=== PATIENT | female | born 1930 | race Asian ===

== ENCOUNTER 2016-08-09 09:05 | Outpatient (CLI) | payer MEDICARE, OTHER | END 2016-08-09 09:06 | disposition home or self-care (01) | DX: E78.5 Hyperlipidemia, unspecified (principal); I10 Essential (primary) hypertension ==

== ENCOUNTER 2016-11-11 18:54 | Emergency (ER) | payer MEDICARE, OTHER ==
--- NOTE | 2016-11-11 20:23 | XRAY Preliminary Report ---
Exam: XR Chest 2 View PA/LAT IMPRESSION: 1. Lungs are well expanded. Heart size within normal limits. 2. There is thoracic aortic tortuosity and calcification. 3. There are scattered nodular opacities within the right upper chest. This is nonspecific but could represent atypical infection. 4. No evidence of pleural effusion. 5. No pneumothorax. [facility] SITE ID: [id number]
--- NOTE | 2016-11-11 20:26 | XRAY Report ---
EXAM: CHEST RADIOGRAPHY EXAM DATE: 11/11/2016 07:48 PM. CLINICAL HISTORY: Cough. COMPARISON: None. TECHNIQUE: 2 views. FINDINGS: Lungs/Pleura: Lungs well-expanded. There is nodular opacities projecting over the right upper chest. No evidence of pleural effusion. No pneumothorax. Mediastinum: Heart size is within normal limits. There is thoracic aortic tortuosity and calcificatio n. Other: There is cholelithiasis. Visualized bowel gas pattern is unremarkable. IMPRESSION: 1. Lungs are well expanded. Heart size within normal limits. 2. There is thoracic aortic tortuosity and calcification. 3. There are scattered nodular opacities within the right upper chest. This is nonspecific but could represent atypical infection. 4. No evidence of pleural effusion. 5. No pneumothorax. [facility] Referring Provider Line: [phone] SITE ID: [id number]
[2016-11-11 20:54] LABS: BASOPHILS # (AUTO) 0.1 10^3/uL (0.0-0.1); BASOPHILS % (AUTO) 0.8 %; EOSINOPHILS # (AUTO) 0.4 10^3/uL (0.0-0.7); EOSINOPHILS % (AUTO) 3.8 %; HCT - HEMATOCRIT 37.4 % (37.0-47.0); HGB - HEMOGLOBIN 12.5 g/dL (12.0-16.0); LYMPHOCYTES % (AUTO) 9.9 %; MEAN CORPUSCULAR HEMOGLOBIN 30.4 pg (27.0-31.0); MEAN CORPUSCULAR HGB CONC 33.5 g/dL (32.0-36.0); MEAN CORPUSCULAR VOLUME 90.9 fL (81.0-99.0); MEAN PLATELET VOLUME 8.2 fL (7.9-10.8); MONOCYTES # (AUTO) 0.6 10^3/uL (0.0-1.0); MONOCYTES % (AUTO) 6.2 %; NEUTROPHILS # (AUTO) 7.9 10^3/uL (1.5-6.6); NEUTROPHILS % (AUTO) 79.3 %; RED BLOOD COUNT 4.11 10^6/uL (4.20-5.40); RED CELL DISTRIBUTION WIDTH 12.9 % (12.0-15.0); UNCORRECTED WHITE BLOOD COUNT 9.9 x10^3/uL; WHITE BLOOD COUNT 9.9 x10^3/uL (4.8-10.8)
[2016-11-11 21:06] LABS: ALBUMIN/GLOBULIN RATIO 1.2 (1.0-2.2); BILIRUBIN,TOTAL 0.5 mg/dL (0.2-1.0); CALCIUM 9.7 mg/dL (8.5-10.3); CREATININE 0.8 mg/dL (0.4-1.0); POTASSIUM 3.7 mmol/L (3.5-5.0); TOTAL PROTEIN 8.2 g/dL (6.7-8.2)
[2016-11-11] MEDS ORDERED: IOPAMIDOL-300 100 ML VIAL IVP ONE (22:01)
--- NOTE | 2016-11-11 22:29 | CT Report ---
EXAM: CT ANGIOGRAM CHEST EXAM DATE: 11/11/2016 10:04 PM. CLINICAL HISTORY: Hemoptysis. COMPARISON: 04/08/2015. TECHNIQUE: Routine helical imaging was performed through the chest in the pulmonary arterial phase. I V Contrast: 80 cc Isovue 300. Reconstructions: Coronal 3-D MIP reconstructions.Sagittal and coronal. In accordance with CT protocol optimization, one or more of the following dose reduction techniques w ere utilized for this exam: automated exposure control, adjustment of mA and/or KV based on patient s ize, or use of iterative reconstructive technique. FINDINGS: Pulmonary Arteries: Diagnostic quality: Adequate through the mid segmental arteries. No evidence for acute or chronic pul monary emboli. Lungs/Pleura: There are scattered nodular opacities within the posterior segment of the right upper l obe. There is mild bibasilar atelectasis. No pleural effusion. No pneumothorax. Mediastinum: Mild aneurysmal dilatation of the ascending thoracic aorta which measures up to 4.0 cm i n diameter. Fluid density focus within the anterior mediastinum may represent a thymic cyst. No solid component is seen. Heart size is within normal limits. No enlarged thoracic lymph nodes. Upper Abdomen: There is cholelithiasis. Fluid density focus measuring 1.9 x 2.5 cm within the pancrea tic body is stable as compared to the previous examination. This could represent a pancreatic cyst or cystic lesion. Other: None. IMPRESSION: 1. No evidence of acute pulmonary embolism to the mid segmental branch level. 2. No evidence of thoracic aortic dissection. There is mild aneurysmal dilatation of the ascending th oracic aorta. 3. Scattered peribronchial nodules within the posterior segment of the right upper lobe. 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 This would be an atypical appearance for canc er or metastasis. 4. Stable fluid density focus within the pancreatic body. 5. There is cholelithiasis. [facility] Referring Provider Line: [phone] SITE ID: [id number]
[2016-11-11] MEDS ORDERED: AZITHROMYCIN 250 MG TABLET PO STA (22:52)
[2016-11-11] MEDS ORDERED: AZITHROMYCIN 250 MG TABLET PO ONE (22:59)
--- NOTE | 2016-11-11 23:27 | ED Physician Documentation ---
PD HPI DYSPNEA - Stated complaint Stated Complaint: COUGHING BLOOD - Chief complaint Chief Complaint: Resp - History obtained from History obtained from: Patient, Family - History of Present Illness Timing - onset: Today Timing - onset during: Rest Timing - details: Gradual onset, Still present Associated symptoms: Hemoptysis. No: Wheezing, Chest pain / discomfort, Diaphoresis, Unilateral edema Similar symptoms before: Has not had sx before Recently seen: Not recently seen - Additional information Additional information: Patient is an 86 year old female with a history of htn who is presenting to the emergency department for hemoptysis. According to patient and family they noticed the symptoms today wit a few episodes. it was about dime size in nature. patient denies chest pain, shortness of breath, fevers or chills. Patient and family travel to [place] every year. Review of Systems Constitutional: denies: Fever, Chills Eyes: denies: Photophobia Ears: denies: Ear pain, Drainage/discharge Nose: denies: Rhinorrhea / runny nose, Congestion Throat: denies: Oral lesions / sores, Sore throat Cardiac: denies: Chest pain / pressure Respiratory: reports: Cough, Hemoptysis. denies: Dyspnea, Wheezing GI: denies: Nausea, Vomiting : denies: Dysuria, Frequency, Hesitancy Skin: denies: Rash, Lesions Musculoskeletal: denies: Neck pain, Back pain, Extremity pain Neurologic: denies: Generalized weakness, Focal weakness Endocrine: denies: Easy bruising / bleeding Immunocompromised: denies: Immunocompromised, Chemotherapy PD PAST MEDICAL HISTORY - Past Medical History Past Medical History: Yes Cardiovascular: Hypertension - Past Surgical History Past Surgical History: No - Present Medications Home Medications: Ambulatory Orders Medication Instructions Recorded Confirmed Alfuzosin HCl [Alfuzosin HCl ER] 10 mg PO DAILY 11/11/16 11/11/16 Chlorthalidone 1 tab PO DAILY 11/11/16 11/11/16 Felodipine [Felodipine ER] 10 mg PO DAILY 11/11/16 11/11/16 Finasteride [Proscar] 1 tab PO DAILY 11/11/16 11/11/16 Gemfibrozil 600 mg PO DAILY 11/11/16 11/11/16 Hydrochlorothiazide 25 mg PO DAILY 11/11/16 11/11/16 Lisinopril 10 mg PO DAILY 11/11/16 11/11/16 Potassium Chloride 20 meq PO BID 11/11/16 11/11/16 amLODIPine [Norvasc] 10 mg PO DAILY 11/11/16 11/11/16 cloNIDine [Catapres] 0.1 mg PO BID 11/11/16 11/11/16 - Allergies Allergies/Adverse Reactions: Allergies Allergy/AdvReac Type Severity Reaction Status Date / Time Penicillins Allergy Unknown Verified 11/11/16 19:20 - Social History Does the pt smoke?: Yes Smoking Status: Former smoker Does the pt drink ETOH?: No Does the pt have substance abuse?: No - Immunizations Immunizations are current?: No Immunizations: TDAP >10years/unknown - POLST Patient has POLST: No PD ED PE NORMAL - Vitals Vital signs reviewed: Yes - General General: Alert and oriented X 3, No acute distress - HEENT HEENT: Atraumatic, PERRL - Neck Neck: Supple, no meningeal sign - Cardiac Cardiac: RRR, No murmur - Respiratory Respiratory: No respiratory distress, Clear bilaterally - Abdomen Abdomen: Soft, Non tender, Non distended - Derm Derm: Normal color, Warm and dry, No rash - Extremities Extremities: No deformity, No tenderness to palpate, No edema - Neuro Neuro: Alert and oriented X 3, bus operator 2-12 intact, No motor deficit, No sensory deficit, Normal speech - Psych Psych: Normal mood, Normal affect Results - Vitals Vitals: Vital Signs - 24 hr 11/11/16 11/11/16 11/11/16 19:18 21:26 23:06 Temperature 36.6 C 36.7 C Heart Rate 110 H 96 80 Respiratory 16 16 15 Rate Blood Pressure 129/71 145/79 H 161/77 H O2 Saturation 94 95 96 11/11/16 23:29 Temperature Heart Rate 92 Respiratory 16 Rate Blood Pressure 151/85 H O2 Saturation 95 Oxygen O2 Source Room air - Labs Labs: Laboratory Tests 11/11/16 11/11/16 20:35 20:35 WBC 9.9 RBC 4.11 L Hgb 12.5 Hct 37.4 MCV 90.9 MCH 30.4 MCHC 33.5 RDW 12.9 Plt Count 363 MPV 8.2 Neut # 7.9 H Lymph # 1.0 L [place] # 0.6 Eos # 0.4 Baso # 0.1 Absolute Nucleated RBC 0.00 Nucleated RBCs 0.0 Sodium 142 Potassium 3.7 Chloride 104 Carbon Dioxide 28 Anion Gap 10.0 BUN 25 H Creatinine 0.8 Estimated GFR (MDRD) 68 L Glucose 199 H Calcium 9.7 Total Bilirubin 0.5 AST 17 ALT 12 Alkaline Phosphatase 75 Total Protein 8.2 Albumin 4.5 Globulin 3.7 Albumin/Globulin Ratio 1.2 Lipase 52 H - Rads (name of study) ct chest Radiology: Final report received (no pe, scattered peribronchial nodules suspicious for mycobacterium), See rad report PD MEDICAL DECISION MAKING - ED course Complexity details: reviewed old records, reviewed results, re-evaluated patient , considered differential, d/w patient, d/w family, d/w production support consultant ED course: Patient was seen and examined at bedside. Chest x-ray had been ordered and showed signs of atypical pneumonia. IV access was gained and labs were drawn. patient's findings were concerning CT PE was ordered. When patient returned the results were reviewed. 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 Infectious ID was consulted at [facility]. Case was discussed Dr. Tomlin. He recommended sputum cultures and to wait to see what the results were before implementing and antibiotic regiment. Discharge plan was explained to the family who understood and agreed. patient required no further work up and was stable for discharge with outpatient follow up. 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 there are many different types so we need to wait on the culture results to see the appropriate treatment. the culture can take ten days to come back. You should call the hospital next sunday to see if the cultures are back. You should also either call the infectious disease clinic at [facility] or [facility] to schedule a follow up appointment. the numbers are listed above. You should return to the emergency department if the symptoms worsen at any time. Discharge Date/Time: 11/11/16 23:42
[2016-11-11 23:29] VITALS: BP 151/85
== END 2016-11-11 23:42 | disposition home or self-care (01) ==
LOC: ED 18:54
DX: R04.2 Hemoptysis (principal); I10 Essential (primary) hypertension; Z87.891 Personal history of nicotine dependence
CPT/HCPCS: 36415; 71020; 71275; 80053; 83690; 85025; 87070; 87205; 99283; 99284; A9270; Q9967

== ENCOUNTER 2016-11-23 11:26 | Outpatient (CLI) | payer MEDICARE, OTHER ==
--- NOTE | 2016-11-23 16:36 | CT Report ---
EXAM: CT CHEST WITHOUT CONTRAST EXAM DATE: 11/23/2016 01:16 PM. CLINICAL HISTORY: Recheck atypical pneumonia. COMPARISONS: 11/11/2016. TECHNIQUE: Routine helical CT imaging was performed through the chest. IV contrast: None. Reconstruct ions: Coronal and sagittal. In accordance with CT protocol optimization, one or more of the following dose reduction techniques w ere utilized for this exam: automated exposure control, adjustment of mA and/or KV based on patient s ize, or use of iterative reconstructive technique. FINDINGS: Lungs/Pleura: Stable ill-defined nodular infiltrate in the posterior right upper lobe. Otherwise tiki r lungs. No effusion or pneumothorax. Mediastinum: Aortic and coronary artery calcification. Stable dilatation of the ascending aorta. Stab le 2.5 cm anterior mediastinal cyst. No adenopathy. The heart and great vessels are normal. Bones: Unremarkable. Visualized Abdomen: Cystic pancreatic body abnormality again noted. Other: None. IMPRESSION: 1. Stable ill-defined nodular infiltrate in the posterior right upper lobe. 2. Stable anterior mediastinal cyst. 3. Stable ascending aortic aneurysm. 4. 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 [facility] Referring Provider Line: [phone] SITE ID: [id number]
== END 2016-11-23 11:27 | disposition home or self-care (01) ==
LOC: DI 11:26
PROVIDERS: ATTEND Family Medicine
DX: J18.9 Pneumonia, unspecified organism (principal); I71.2 Thoracic aortic aneurysm, without rupture; K86.2 Cyst of pancreas
CPT/HCPCS: 71250

== ENCOUNTER 2017-06-13 08:00 | Outpatient (CLI) | payer MEDICARE, OTHER ==
[2017-06-13 12:54] LABS: ALBUMIN 4.5 g/dL (3.2-5.5); ALBUMIN/GLOBULIN RATIO 1.4 (1.0-2.2); ALKALINE PHOSPHATASE 63 IU/L (42-121); ALT ALANINE AMINOTRANSFERASE < 10 IU/L (10-60); AST ASPARTATE AMINOTRANSFERASE 19 IU/L (10-42); BILIRUBIN,TOTAL 0.6 mg/dL (0.2-1.0); BUN - BLOOD UREA NITROGEN 21 mg/dL (6-20); CALCIUM 9.2 mg/dL (8.5-10.3); CARBON DIOXIDE - CO2 26 mmol/L (21-32); CHLORIDE 101 mmol/L (101-111); CREATININE 0.9 mg/dL (0.4-1.0); GFR - MDRD 59 (>89); GLUCOSE 90 mg/dL (70-100); SODIUM 137 mmol/L (135-145); TOTAL PROTEIN 7.8 g/dL (6.7-8.2)
[2017-06-13 12:57] LABS: BASOPHILS # (AUTO) 0.1 10^3/uL (0.0-0.1); BASOPHILS % (AUTO) 1.5 %; EOSINOPHILS # (AUTO) 0.4 10^3/uL (0.0-0.7); EOSINOPHILS % (AUTO) 6.3 %; HEMOGLOBIN A1C 0.48 g/dL; HEMOGLOBIN A1C % 5.5 % (4.6-6.2); HGB - HEMOGLOBIN 12.1 g/dL (12.0-16.0); LYMPHOCYTES # (AUTO) 1.4 10^3/uL (1.5-3.5); LYMPHOCYTES % (AUTO) 24.8 %; MEAN CORPUSCULAR HEMOGLOBIN 30.3 pg (27.0-31.0); MEAN CORPUSCULAR HGB CONC 33.5 g/dL (32.0-36.0); MEAN CORPUSCULAR VOLUME 90.5 fL (81.0-99.0); MEAN PLATELET VOLUME 8.6 fL (7.9-10.8); MONOCYTES # (AUTO) 0.4 10^3/uL (0.0-1.0); MONOCYTES % (AUTO) 7.4 %; NEUTROPHILS # (AUTO) 3.5 10^3/uL (1.5-6.6); PLT - PLATELET COUNT 341 10^3/uL (130-450); RED BLOOD COUNT 3.99 10^6/uL (4.20-5.40); RED CELL DISTRIBUTION WIDTH 13.1 % (12.0-15.0); WHITE BLOOD COUNT 5.7 x10^3/uL (4.8-10.8)
== END 2017-06-13 08:01 ==
LOC: LAB.WCP 08:00
PROVIDERS: ATTEND Family Medicine
DX: R73.01 Impaired fasting glucose (principal); J18.9 Pneumonia, unspecified organism; I10 Essential (primary) hypertension
CPT/HCPCS: 36415; 80053; 83036; 85025